=== PATIENT | male | born 1985 ===

== ENCOUNTER 2020-05-01 12:39 | Emergency (ER) | payer SELFPAY ==
[~2020-05-01] VITALS: Ht 167.6 cm; Wt 72.6 kg
[2020-05-01] MEDS: IV NORMAL SALINE 1000 ML BAG IV ONE (12:30)
[2020-05-01] MEDS: OLANZAPINE 10 MG VIAL IM ONE (12:47)
--- NOTE | 2020-05-01 12:47 | NUR ---
ZYPREXA GIVEN IM IN LEFT DELTOID
[2020-05-01] MEDS ORDERED: OLANZAPINE 10 MG VIAL IM ONE (12:48)
--- NOTE | 2020-05-01 12:49 | NUR ---
BIB [facility]BD [employer] IN [employer]. PATIENT IS AWAKE BUT COMABTIVE AND VERY IRRITABLE. HE CANNOT ANSWER QUESTIONS WELL. MEDICATION GIVEN ORDERED
--- NOTE | 2020-05-01 13:09 | NUR ---
PER MD WILL WAIT FOR PATIENT TO CALM DOWN BEFORE TESTS... PATIENT IS STILL COMBATIVE AND SPITTING EVERYWHERE
[2020-05-01] MEDS ORDERED: LORAZEPAM 2 MG/1 ML VIAL ONE (13:46)
--- NOTE | 2020-05-01 13:48 | NUR ---
PATIENT WAS CALM AND I WAS ABLE TO PERFORM A 12 LEAD EKG. BUT HWNE I TRIED TO PLACE AN IV, PATIENT GOT COMABTIVE AGAIN AND KEPT TWISTING HIS ARM. I NOTIFED DR FLORES. ATIVAN GIVEN ORDERED. VITAL SIGNS STABLE
[2020-05-01] MEDS: LORAZEPAM 2 MG/1 ML VIAL IM ONE (13:49)
--- NOTE | 2020-05-01 13:50 | NUR ---
ATIVAN GIVEN IM IN RIGHT DELTOID
[2020-05-01 15:19] LABS: BASOPHILS # (AUTO) 0.1 K/uL (0.0-8.0); BASOPHILS % (AUTO) 0.8 % (0.0-2.0); EOSINOPHILS # (AUTO) 0.5 K/uL (0.0-0.7); EOSINOPHILS % (AUTO) 6.3 % (0.0-7.0); HEMATOCRIT 44.3 % (36.7-47.1); HEMOGLOBIN 14.9 g/dL (12.5-16.3); LYMPHOCYTES # (AUTO) 1.4 K/uL (20.0-40.0); LYMPHOCYTES % (AUTO) 17.7 % (20.5-51.5); MEAN CORPUSCULAR HEMOGLOBIN 30.3 uug (23.8-33.4); MEAN CORPUSCULAR HGB CONC 34 g/dL (32.5-36.3); MEAN CORPUSCULAR VOLUME 89.9 fL (73.0-96.2); MONOCYTES # (AUTO) 0.9 K/uL (2.0-10.0); MONOCYTES % (AUTO) 11.1 % (0.0-11.0); NEUTROPHILS # (AUTO) 5.2 K/uL (1.8-8.9); NEUTROPHILS % (AUTO) 64.1 % (38.5-71.5); PLATELET COUNT (AUTO) 263 K/uL (152-348); RED BLOOD CELL COUNT(AUTO) 4.93 MIL/uL (4.06-5.63); WHITE BLOOD COUNT (AUTO) 8.2 K/uL (3.6-10.2)
[2020-05-01 15:24] LABS: CARBON DIOXIDE 29 mmol/L (21-32); CHLORIDE 101 mmol/L (98-107); CREATININE 1.1 mg/dL (0.6-1.3); GLUCOSE 85 mg/dL (74-106); POTASSIUM 4.2 mmol/L (3.5-5.1); UREA NITROGEN, BLOOD 29 mg/dL (7-18)
[2020-05-01 15:30] LABS: ALANINE AMINOTRANSFERASE 25 U/L (16-63); ALKALINE PHOSPHATASE 75 U/L (50-136); ASPARTATE AMINOTRANSFERASE 24 U/L (15-37); BILIRUBIN,DIRECT 0.2 mg/dL (0.0-0.2); BILIRUBIN,TOTAL 0.9 mg/dL (0.2-1.0); CREATINE KINASE, TOTAL 143 U/L (39-308); TOTAL PROTEIN, SERUM 8.1 g/dL (6.4-8.2)
[2020-05-01 15:33] LABS: ACETAMINOPHEN < 2.0 ug/mL (10-30)
[2020-05-01 15:34] LABS: ETHANOL < 3 MG/DL (0-0)
--- NOTE | 2020-05-01 17:29 | NUR ---
PATIENT IS AWAKE, ALERT, ORIENTED X4. STATES HIS NAME FULLY AND DATE OF . HE IS SITTING UP EATING A SANDWICH AND DRINKING WATER AND JUICE. DENIES PAIN. STATES HE IS HOMELESS BUT WANTS TO LEAVE. STATES DOES NOT NEED ASSITANCE WITH [facility] OR ANYTHING ELSE. STATES HE TOOK TOO MUCH MARIJUANA TODAY.
--- NOTE | 2020-05-01 17:58 | NUR ---
PATIENT ATE THREE SANDWICHES AND DRANK MORE JUICE AND WATER. STATES HE DOES NOT NEED ANYTHING EXCEPT WANTED THE FOOD. I GAVE HIM RESOURCES FOR FOOD AND HE SAID "I HAVE FOOD BUT I DIDNT HAVE IT NOW". STATES DOES NOT NEED TRANSPORTATION. DENIES ALL HELP.
--- NOTE | 2020-05-01 18:28 | NUR ---
PATIENT IS AMBULATORY WITH STEADY GAIT. I GAVE HIM A NEW CLEAN SHIRT AND SOCKS. I ALSO GAVE HIM A BAG OF FOOD TO GO. HE ATE MANY SANDWICHES HERE. HE STATES HE KNOWS EXACTLY WHERE HE IS GOING
--- NOTE | 2020-05-01 18:31 | NUR ---
CATHETER NEVER PLACED. PATIENT URINATED IN TOILET.
--- NOTE | 2020-05-01 18:34 | NUR ---
DC AND FOLLOW UP INSTRUCTIONS GIVEN AND EXPLAINED TO PATIENT WHO STATES HE UNDERSTANDS ALL INSTRUCTIONS
[2020-05-01 18:37] VITALS: BP 122/71
== END 2020-05-01 18:40 | disposition home or self-care (01) ==
LOC: ER 12:39 → EDBD 12:39 → ER 18:40
DX: F19.129 Other psychoactive substance abuse with intoxication, unspecified (principal); Z20.828 Contact with and (suspected) exposure to other viral communicable diseases; Z59.0 Homelessness
CPT/HCPCS: 36415; 71045; 80048; 80076; 80307; 80329; 82550; 84443; 85025; 85730; 87426; 93005; 96360; 96361; 96372 ×2; 99285; G0480; J2060; A4663; J2358; J7030